=== PATIENT | male | born 1945 | race Caucasian/White ===

== ENCOUNTER 2022-04-01 07:08 | Observation (INO) ==
[2022-04-01] MEDS ORDERED: IOPAMIDOL 100 ML BOTTLE IV ONE (07:09)
[2022-04-01] MEDS ORDERED: 0.9 % SODIUM CHLORIDE 1,000 ML IV ONE (07:20)
--- NOTE | 2022-04-01 07:24 | Emergency Department Note ---
Neuro HPI General Chief Complaint: Stroke Symptoms Stated Complaint: weakness Time Seen by Provider: 04/01/22 07:15 Source: patient Mode of arrival: ambulatory Limitations: no limitations History of Present Illness HPI Narrative: Narrative: Patient presents to the ED with complaints of dizziness and vision changes x10 minutes prior to arrival. Patient everything was okay this morning but after he got the shower he felt really dizzy and he started seeing double. He also reports that he is feeling generalized weakness in his extremities. He reports some shortness of breath just not feeling well. He denies fever, chills, nausea, vomiting, Tj pain, diarrhea, dysuria, hematuria, urinary frequency, melena, medic easier, hematemesis, cardiac chest pain, hemoptysis, heart palpitation, cough, sputum production, wheezes, headache, head trauma. His states that it seems like his speech is slurred or off compared to his baseline. Denies any facial droopiness. Patient states that he has been able to walk but he feels weak. Patient denies any other alleviating or aggravating factors. He does take Coumadin for aortic valve replacement. Patient does have a history of vascular disease and recently had a carotid endarterectomy about a month ago in [place]. On Anticoagulants: Yes Related Data Home Medications Medication Instructions Recorded Confirmed Adult Low Dose Aspirin 81 mg PO DAILY 12/05/20 02/07/22 Madeline 180 mg PO DAILY 12/05/20 02/07/22 carvedilol 25 mg tablet 12.5 mg PO BID 12/05/20 02/07/22 losartan 100 mg tablet 50 mg PO BID 12/05/20 02/07/22 oxaprozin 600 mg tablet 600 mg PO BID 12/05/20 02/07/22 rosuvastatin 10 mg tablet 10 mg PO HS 12/05/20 02/07/22 zolpidem 10 mg tablet 5 mg PO DAILY 12/05/20 02/07/22 omeprazole 20 mg capsule,delayed 20 mg PO QDAY 12/26/20 02/07/22 release warfarin 3 mg tablet 3 mg PO DAILY 12/26/20 02/07/22 hydrochlorothiazide 12.5 mg tablet 25 mg PO DAILY 12/15/21 02/07/22 cholecalciferol (vitamin D3) 125 125 mcg PO QDAY 12/27/21 02/07/22 mcg (5,000 unit) capsule prasugrel 5 mg tablet 5 mg PO QDAY 02/07/22 02/07/22 morphine 30 mg tablet,extended 30 mg PO QAM 04/01/22 04/01/22 release Allergies Allergy/AdvReac Type Severity Reaction Status Date / Time Penicillins Allergy Severe Anaphylaxis Verified 02/07/22 10:11 Review of Systems ROS ROS Narrative: Narrative: All systems ED: reviewed and negative except as stated. PFSH Narrative Patient History Narrative: Narrative: Medical/Surgical/Family History All Active Problems (Updated 04/01/22 @ 08:39 by Usman Villa DO) BP (high blood pressure) (Acute) TIA (transient ischemic attack) (Acute) Cough in adult patient (Acute) Syncope (Acute) Accidental bee sting (Acute) Pruritus (Acute) Social History Smoking Status: Former smoker and Never smoker Exam Narrative Narrative: Narrative: General Limitations: no limitations General appearance: Present alert Head Head: Present atraumatic and normocephalic Eye Eye: Present PERRL and EOMI ENT ENT: Present normal oropharynx and mucous membranes moist Neck Neck: Present normal inspection and full ROM; Absent meningismus Chest Chest: Present normal inspection; Absent tenderness Respiratory Respiratory: Present normal lung sounds bilaterally; Absent respiratory distress Cardiovascular Cardiovascular: Present regular rate and normal rhythm Adbominal Abdominal: Present soft and normal bowel sounds; Absent tenderness Extremities Extremities: Present normal inspection, full ROM and normal capillary refill Back Back: Absent CVA tenderness (R), CVA tenderness (L) or L-S tenderness Neurological Neurological: Present oriented X3, normal gait and other (nih=0) Expanded Neurological CRANIAL NERVES: EOM function (II, III, IV, ): Normal, facial sensation (V): Normal, facial palsy (VII): Normal, gag reflex (IX): Normal, spinal accessory function (XI): Normal and tongue deviation (XII): Normal CEREBELLAR FUNCTION: normal gait Motor strength - LUE: 5/5 Motor strength - RUE: 5/5 Motor strength - LLE: 5/5 Motor strength - RLE: 5/5 Coma Scale Eye Opening: Spontaneous Coma Scale Motor Response: Obeys Commands Coma Scale Verbal Response: Oriented Coma Scale Total: 15 Psychiatric Psychiatric: Present normal affect and normal mood Skin Skin: Present warm (WNL) and intact Course Course Course Narrative: Patient was evaluated for dizziness and vision changes. There was concern for stroke. EKG was obtained unremarkable. CT of the head without contrast obtained with image reviewed myself with no acute findings. CTA of the head and neck was obtained with no significant changes from prior. Case was discussed with telemetry neurologist who recommends against thrombolytics at this time. Recommendations are for patient to be admitted to the hospitalist service to receive a full stroke work-up to include echocardiogram and MRI of the brain with possible initiation of aspirin and Plavix. Should be noted that patient is already on a daily baby aspirin. Case was discussed with hospitalist who has agreed to admit the patient. Plan of care was discussed with patient expressed verbal understanding and agreement. Consultations Consultation #1: Case discussed with telemetry neurologist Dr. Barba, who will evaluate the patient. Time: 07:30 Consultation #2: Case was rediscussed with telemetry neurologist, Dr. Barba, who recommends that patient be admitted to the hospitalist service for stroke work-up to include echocardiogram, MRI and possible initiation of aspirin and Plavix. At this time she recommends against thrombolytics as patient is NIH score is 0 on her scale. Time: 08:10 Consultation #3: Discussed with the hospitalist, Dr. Lynch, who has agreed to admit the patient for stroke work-up Time: 10:29 Vital Signs Vital signs: Vital Signs Temperature 97.1 F 04/01/22 07:10 Pulse Rate 66 04/01/22 07:10 Respiratory Rate 19 04/01/22 07:10 Blood Pressure 152/65 04/01/22 07:10 Oxygen Delivery Method 04/01/22 07:10 Temperature 97.1 F 04/01/22 07:10 Pulse Rate 62 04/01/22 09:31 Respiratory Rate 12 04/01/22 09:42 Blood Pressure 152/50 04/01/22 09:42 Pulse Oximetry (%) 100 04/01/22 09:31 Oxygen Delivery Method 04/01/22 07:10 MDM MDM Narrative Medical decision making narrative: Narrative: Differential Diagnosis Differential Diagnosis: Stroke, dehydration, bacterial infection, viral illness Medical Records Medical records reviewed: Yes I reviewed the patient's medical records. Lab Data Lab results reviewed: Yes I reviewed the patient's lab results. Result diagrams: 04/01/22 07:58 Labs: Lab Results 04/01/22 04/01/2204/01/22 Range/Units 07:39 07:58 07:58 WBC 3.9 L (4.5-11.0) K/mcL RBC 4.13 L (4.63-6.08) M/mcL Hgb 11.7 L (13.7-17.5) g/dL Hct 35.6 L (40.1-51.0) % POC Hct 33.0 L (41-55) MCV 86.2 (80.0-100.0) fL MCH 28.3 (26.0-34.0) pg MCHC 32.9 (31.0-36.0) g/dL RDW 15.2 H (11.5-14.5) % Plt Count 149 (140-440) K/mcL MPV 9.4 (8.8-12.5) fL Immature Gran % (Auto) 1.0 H (0.0-0.5) % Neut % (Auto) 70.4 (38.0-78.0) % Lymph % (Auto) 12.5 L (15.5-49.0) % [place] % (Auto) 9.4 (1.0-12.0) % Eos % (Auto) 5.4 (0.0-7.0) % Baso % (Auto) 1.3 (0.0-2.0) % Lymph # (Auto) 0.49 L (1.50-4.80) K/mcL [place] # (Auto) 0.37 (0.10-0.90) K/mcL Eos # (Auto) 0.21 (0.00-0.70) K/mcL Baso # (Auto) 0.05 (0.00-0.30) K/mcL Immature Gran # 0.04 (0.00-0.05) K/mcl Absolute Neutrophils 2.76 (1.80-8.00) K/mcL POC PT (11.9-14.5) POC INR (0.8-1.2) POC Sodium 138 (133-145) POC Potassium 3.6 (3.3-5.1) POC Chloride 105 (96-108) POC Total CO2 24.0 (22-30) POC BUN 28 H (6-20) POC Creatinine 1.5 H (0.6-1.2) POC Glucose 115 H (70-105) POC WB Ioniz Calcium 1.22 (1.16-1.32) Total Bilirubin 0.3 (0.1-1.0) mg/dL Direct Bilirubin < 0.2 (0-0.3) mg/dL AST 18 (<40) U/L ALT 17 (<40) U/L Alkaline Phosphatase 43 (39-117) U/L NT-Pro-B Natriuret Pep 646.7 H (<450.0) pg/mL Total Protein 5.6 L (5.9-8.4) gm/dL Albumin 3.4 (3.2-5.2) gm/dL Globulin 2.2 (2.2-3.7) gm/dL 04/01/22 Range/Units 08:02 WBC (4.5-11.0) K/mcL RBC (4.63-6.08) M/mcL Hgb (13.7-17.5) g/dL Hct (40.1-51.0) % POC Hct (41-55) MCV (80.0-100.0) fL MCH (26.0-34.0) pg MCHC (31.0-36.0) g/dL RDW (11.5-14.5) % Plt Count (140-440) K/mcL MPV (8.8-12.5) fL Immature Gran % (Auto) (0.0-0.5) % Neut % (Auto) (38.0-78.0) % Lymph % (Auto) (15.5-49.0) % [place] % (Auto) (1.0-12.0) % Eos % (Auto) (0.0-7.0) % Baso % (Auto) (0.0-2.0) % Lymph # (Auto) (1.50-4.80) K/mcL [place] # (Auto) (0.10-0.90) K/mcL Eos # (Auto) (0.00-0.70) K/mcL Baso # (Auto) (0.00-0.30) K/mcL Immature Gran # (0.00-0.05) K/mcl Absolute Neutrophils (1.80-8.00) K/mcL POC PT 26.4 H (11.9-14.5) POC INR 2.3 H (0.8-1.2) POC Sodium (133-145) POC Potassium (3.3-5.1) POC Chloride (96-108) POC Total CO2 (22-30) POC BUN (6-20) POC Creatinine (0.6-1.2) POC Glucose (70-105) POC WB Ioniz Calcium (1.16-1.32) Total Bilirubin (0.1-1.0) mg/dL Direct Bilirubin (0-0.3) mg/dL AST (<40) U/L ALT (<40) U/L Alkaline Phosphatase (39-117) U/L NT-Pro-B Natriuret Pep (<450.0) pg/mL Total Protein (5.9-8.4) gm/dL Albumin (3.2-5.2) gm/dL Globulin (2.2-3.7) gm/dL ED POC Tests ED POC Tests: JUANCARLOS - Influenza A Negative JUANCARLOS - Influenza B Negative JUANCARLOS - SARS Antigen Negative Radiology Data Radiology results reviewed: Yes I reviewed the patient's radiology results. Radiology results narrative: CT of the head obtained with image reviewed myself, agree with radiologist to rotation CTA of the head and neck obtained with image reviewed myself, I agree with radiologist interpretation EKG Data EKG #1: EKG attestation: Yes I reviewed and interpreted this EKG. 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 only: No Clinical Impression: TIA (transient ischemic attack) Patient Disposition: Xfer As Outpt/Obs ([facility]) Condition: Fair Follow up with: Lorrie Thorne [Primary Care Provider] - Prescriptions: No Action cholecalciferol (vitamin D3) 125 mcg (5,000 unit) capsule 125 mcg PO QDAY Adult Low Dose Aspirin 81 mg tablet 81 mg PO DAILY Madeline 180 mg tablet 180 mg PO DAILY carvedilol 25 mg tablet 12.5 mg PO BID oxaprozin 600 mg tablet 600 mg PO BID zolpidem 10 mg tablet 5 mg PO DAILY losartan 100 mg tablet 50 mg PO BID rosuvastatin 10 mg tablet 10 mg PO HS warfarin 3 mg tablet 3 mg PO DAILY omeprazole 20 mg Capsule,Delayed Release(Dr/Ec) 20 mg PO QDAY hydrochlorothiazide 12.5 mg tablet 25 mg PO DAILY prasugrel 5 mg Tablet 5 mg PO QDAY morphine 30 mg Tablet Extended Release 30 mg PO QAM
--- NOTE | 2022-04-01 07:51 | Cat Scan Report ---
History: New stroke symptoms with weakness. 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 Sagittal and coronal reformats were created. The radiation exposure was limited using dose reduction technology. FINDINGS: There is moderate atrophy in the frontal lobes with milder atrophy throughout the remainder the brain. There is no evidence of an infarct. No hemorrhage or mass effect are present. There are subtle areas of decreased attenuation in the white matter in the frontal and parietal lobes consistent with microvascular ischemia. The ventricles are normal in size. No abnormal extra-axial fluid collection is present. There are dense calcifications in the left vertebral artery, cavernous portions of both internal carotids and the inferior aspect of the basilar artery. Comparison with the prior CT angiogram done on 02/07/22 shows no significant change. IMPRESSION: Age-related degenerative changes and no acute abnormality Dr. Villa was called with the report Interpreted and Authenticated by: Derek Burns 04/01/22
[2022-04-01 08:00] LABS: POC Calcium, Ionized 1.22 (1.16-1.32); POC Creatinine 1.5 (0.6-1.2); POC Potassium 3.6 (3.3-5.1)
[2022-04-01 08:07] LABS: POC INR 2.3 (0.8-1.2); POC Pro Time 26.4 (11.9-14.5)
--- NOTE | 2022-04-01 08:28 | Cat Scan Report ---
History: New stroke symptoms with chronic occlusion of the right internal carotid, prior left carotid endarterectomy TECHNIQUE: Following injection of intravenous nonionic contrast, arterial phase images were acquired from the ascending aorta to the top of the head. Sagittal and coronal reformats of the head and neck were created along with MIPS images and curved linear reformats. The radiation exposure was limited using dose reduction technology. FINDINGS: NECK: Severe atherosclerotic disease is present in the aorta and its origin of great vessels arising from the aorta. Large amount of dense plaque is present at the origin of the brachiocephalic artery. This is causing a 75-80% stenosis. There also plaques in both subclavian arteries which do not appear to be hemodynamically significant. Plaques are present at the origins of both vertebral arteries causing less than 50% stenosis. Is also plaque in the proximal left common carotid which is not causing hemodynamically significant stenosis. Large amount densely calcified plaque is present in the right carotid bifurcation. There is chronic complete occlusion of the right internal carotid from the level of the carotid bifurcation to the anterior clinoid at the skull base. The right external carotid is patent. There is a contour deformity in the proximal left internal carotid due to the recent endarterectomy. This is causing less than 50% stenosis. Left external carotid is normal. Incidentally noted is severe degenerative disc disease and arthritis at multiple levels in the neck. This is a chronic stable finding. Brain: The right intracranial internal carotid artery is completely occluded. There is a large amount calcified plaque in the cavernous portion of the left internal carotid creating greater than 70% stenoses. There is normal filling of the anterior and middle cerebral arteries. There is a normal anterior and right posterior communicating artery. Left posterior communicating artery is hypoplastic. A large amount of densely calcified plaque is present in the left vertebral artery at the foramen magnum. This is increased greater than 70% stenosis. Left vertebral is dominant. The intracranial portion of the right vertebral artery is normal without evidence of stenosis. Small eccentric plaque is present in the proximal basilar artery creating approximately 40% stenosis. The basilar artery is otherwise normal. There is normal filling of the posterior inferior, anterior, inferior superior cerebellar and posterior cerebral arteries. No thrombosis is developed in the intracranial vessels. The atherosclerosis and stenotic lesions have remained stable since a prior CT done on 02/07/22. There is no evidence of hemorrhage. No aneurysm or vasculitis are present. IMPRESSION: Chronic stable complete occlusion of the right internal carotid with collateral blood flow to the right side of the brain via the anterior communicating and right posterior communicating arteries. 75-80% stenosis at the origin of the right brachiocephalic artery due to plaque Greater than 70% stenosis in the left vertebral artery at the foramen magnum Greater than 70% stenosis of the cavernous portion of the left internal carotid Dr. Villa was called with the report Interpreted and Authenticated by: Derek Burns 04/01/22
[2022-04-01 09:08] LABS: Basophils # (Auto) 0.05 K/mcL (0.00-0.30); Basophils % (Auto) 1.3 % (0.0-2.0); Eosinophils # (Auto) 0.21 K/mcL (0.00-0.70); Eosinophils % (Auto) 5.4 % (0.0-7.0); Hematocrit 35.6 % (40.1-51.0); Hemoglobin 11.7 g/dL (13.7-17.5); Lymphocytes # (Auto) 0.49 K/mcL (1.50-4.80); Lymphocytes % (Auto) 12.5 % (15.5-49.0); Mean Cell Volume 86.2 fL (80.0-100.0); Mean Corpuscular HGB Conc 32.9 g/dL (31.0-36.0); Mean Platelet Volume 9.4 fL (8.8-12.5); Monocytes # (Auto) 0.37 K/mcL (0.10-0.90); Monocytes % (Auto) 9.4 % (1.0-12.0); Neutrophils % (Auto) 70.4 % (38.0-78.0); Platelet Count 149 K/mcL (140-440); RBC 4.13 M/mcL (4.63-6.08); Red Cell Distribution Width 15.2 % (11.5-14.5); WBC 3.9 K/mcL (4.5-11.0)
[2022-04-01 09:33] LABS: proBNP 646.7 pg/mL (<450.0)
[2022-04-01 09:34] LABS: ALT/SGPT 17 U/L (<40); AST/SGOT 18 U/L (<40); Albumin 3.4 gm/dL (3.2-5.2); Alkaline Phosphatase 43 U/L (39-117); Bilirubin,Direct < 0.2 mg/dL (0-0.3); Bilirubin,Total 0.3 mg/dL (0.1-1.0); Globulin 2.2 gm/dL (2.2-3.7)
--- NOTE | 2022-04-01 11:11 | Internal Med History&Physical ---
HPI History of Present Illness Patient information: Note initiated : 04/01/22 at 11:05 am Service Date, if different from initiated Date: [] Patient: Sidney Elizabeth 76 y/o M admitted on for weakness. Chief Complaint: [] History of present illness: Mr. Elizabeth is a 76-year-old male with multiple medical comorbidities including hypertension, hyperlipidemia, chronic neck pain on long-term opioid therapy, coronary artery disease status post CABG and multiple coronary stents, aortic valve replacement with mechanical valve, peripheral arterial disease including chronically occluded right internal carotid artery and left internal carotid artery stenosis status post carotid endarterectomy about 4 weeks prior to admission, GERD who developed vertigo and aphasia about 7:00 AM on 04/01/2022 which lasted for approximately 1 hour. Patient was brought to the emergency department and a stroke work-up initiated. Noncontrast CT head did not show any acute changes, the CTA head and neck showed a 75 to 80% stenosis at the origin of the right brachiocephalic artery due to plaque, a greater than 70% stenosis in the left vertebral artery at the mancini magnum, greater than 70% stenosis of the cavernous portion of the left internal carotid artery.there was a chronically occluded right internal carotid artery with collateral blood flow to the right side of the brain via the anterior communicating and right posterior communicating arteries. The patient did have a left carotid endarterectomy about 4 weeks prior to admission. Other work-up included a CBC which showed a mild anemia with a hemoglobin 11.7, normal platelet count, INR which was 2.3, complete metabolic panel which was significant for a creatinine of 1.5. EKG showed that the patient was in normal sinus rhythm, there was a prolonged [place] interval and a left bundle branch block. Stroke neurology was consulted by the ED provider, the recommendation was to admit the patient for a stroke work-up to include an MRI brain, echocardiogram and blood work. If a stroke is noted on the MRI brain then the patient would be a candidate for Plavix for 21 days in addition to the patient's current aspirin and Coumadin. When the patient was seen in the emergency department, his symptoms had totally resolved, review of systems was otherwise negative for any recent changes. The patient said that he has not tolerated Plavix in the past, instead was treated with prasugrel following his carotid endarterectomy however is no longer taking that antiplatelet. Review of systems Constitutional: no fever, fatigue, or weight loss Eyes: no vision changes or pain Cardiovascular: no chest pain, no palpitations Respiratory: no cough or dyspnea Gastrointestinal: Positive for episodic epigastric discomfort, denies melanotic or bloody stools Genitourinary: no dysuria or difficulty voiding Musculoskeletal: Positive for chronic neck pain Integumentary: no skin lesion or wound Neurological: Resolved vertigo and confusion, no focal weakness or numbness Psychiatric: no anxiety or depression Physical exam Head: Atraumatic, normal inspection. Eyes: normal appearance, no scleral icterus. Neck: full ROM Respiratory: no respiratory distress. Cardiovascular: Sternotomy i scar present, normal rate and rhythm, mechanical S2. GI/Abdominal: soft, nontender, no guarding. Extremities: full range of motion, nontender. Neurological: CN II-XII intact, intact motor, intact sensation. Psychiatric: normal mood. Skin: warm, chronic discoloration secondary to small vessel hemorrhages in bilateral upper extremities secondary to Coumadin therapy PFSH PFSH All Active Problems (Updated 04/01/22 @ 08:39 by Usman Villa DO) BP (high blood pressure) (Acute) TIA (transient ischemic attack) (Acute) Cough in adult patient (Acute) Syncope (Acute) Accidental bee sting (Acute) Pruritus (Acute) Social History smoking status: Former smoker and Never smoker MEDS/ALLERGIES Home Medications and Allergies Home Medications Medication Instructions Recorded Confirmed Type Adult Low Dose Aspirin 81 mg PO DAILY 12/05/20 04/01/22 History Madeline 180 mg PO DAILY 12/05/20 04/01/22 History carvedilol 25 mg tablet 12.5 mg PO BID 12/05/20 04/01/22 History losartan 100 mg tablet 50 mg PO BID 12/05/20 04/01/22 History oxaprozin 600 mg tablet 600 mg PO BID 12/05/20 04/01/22 History rosuvastatin 10 mg tablet 10 mg PO HS 12/05/20 04/01/22 History zolpidem 10 mg tablet 5 mg PO DAILY 12/05/20 04/01/22 History omeprazole 20 mg capsule,delayed 20 mg PO QDAY 12/26/20 04/01/22 History release warfarin 3 mg tablet 3 mg PO DAILY 12/26/20 04/01/22 History hydrochlorothiazide 12.5 mg tablet 25 mg PO DAILY 12/15/21 04/01/22 History cholecalciferol (vitamin D3) 125 125 mcg PO QDAY 12/27/21 04/01/22 History mcg (5,000 unit) capsule prasugrel 5 mg tablet 5 mg PO QDAY 02/07/22 02/07/22 History morphine 30 mg tablet,extended 30 mg PO QAM 04/01/22 04/01/22 History release Allergies Allergy/AdvReac Type Severity Reaction Status Date / Time Penicillins Allergy Severe Anaphylaxis Verified 02/07/22 10:11 EXAM Constitutional Vitals: Temp Pulse Resp BP Pulse Ox O2 Del Method 97.1 F 63 14 172/70 100 04/01/22 07:10 04/01/22 10:31 04/01/22 10:49 04/01/22 10:49 04/01/22 10:31 04/01/22 07:10 DATA Data Completed and Pending Labs: Labs from last 24 hours 04/01/22 04/01/22 04/01/22 08:02 07:58 07:58 WBC 3.9 L RBC 4.13 L Hgb 11.7 L Hct 35.6 L POC Hct MCV 86.2 MCH 28.3 MCHC 32.9 RDW 15.2 H Plt Count 149 MPV 9.4 Immature Gran % (Auto) 1.0 H Neut % (Auto) 70.4 Lymph % (Auto) 12.5 L [place] % (Auto) 9.4 Eos % (Auto) 5.4 Baso % (Auto) 1.3 Lymph # (Auto) 0.49 L [place] # (Auto) 0.37 Eos # (Auto) 0.21 Baso # (Auto) 0.05 Immature Gran # 0.04 Absolute Neutrophils 2.76 POC PT 26.4 H POC INR 2.3 H POC Sodium POC Potassium POC Chloride POC Total CO2 POC BUN POC Creatinine POC Glucose POC WB Ioniz Calcium Total Bilirubin 0.3 Direct Bilirubin < 0.2 AST 18 ALT 17 Alkaline Phosphatase 43 NT-Pro-B Natriuret Pep 646.7 H Total Protein 5.6 L Albumin 3.4 Globulin 2.2 04/01/22 07:39 WBC RBC Hgb Hct POC Hct 33.0 L MCV MCH MCHC RDW Plt Count MPV Immature Gran % (Auto) Neut % (Auto) Lymph % (Auto) [place] % (Auto) Eos % (Auto) Baso % (Auto) Lymph # (Auto) [place] # (Auto) Eos # (Auto) Baso # (Auto) Immature Gran # Absolute Neutrophils POC PT POC INR POC Sodium 138 POC Potassium 3.6 POC Chloride 105 POC Total CO2 24.0 POC BUN 28 H POC Creatinine 1.5 H POC Glucose 115 H POC WB Ioniz Calcium 1.22 Total Bilirubin Direct Bilirubin AST ALT Alkaline Phosphatase NT-Pro-B Natriuret Pep Total Protein Albumin Globulin A/P Narrative A/P Narrative: Assessment: 76-year-old male with a history of hypertension, hyperlipidemia, chronic neck pain on long-term opioid therapy, coronary artery disease status post CABG and multiple coronary stents, aortic valve replacement with mechanical valve, peripheral arterial disease including chronically occluded right internal carotid artery and left internal carotid artery stenosis status post carotid endarterectomy about 4 weeks prior to admission, GERD admitted for TIA and stroke work-up following about 1 hour of vertigo and aphasia which have completely resolved. Plan -Admit to observation for expedited MRI and stroke/TIA work-up. -Continue aspirin 81 mg daily. -Continue rosuvastatin 10 mg daily. -Coumadin per pharmacy. -MRI brain. -Transthoracic echocardiogram. -Neurochecks every 4 hours, NIHSS every shift and as needed. -Permissive blood pressure pending MRI results, if negative will resume home antihypertensives. -Labetalol IV labetalol and hydralazine IV as needed for extremely elevated blood pressure -campus monitor. -Check lipid panel and hemoglobin A1c. -Follow CBC and IPP. -Home medication reconciliation, continue important meds. -Cardiac diet. -PT consult. -DVT prophylaxis: Coumadin Time Spent With Patient Time: Total time spent is greater than 50% in coordination of care (as documented) at patient's floor/unit and/or counseling patient:
[2022-04-01] MEDS ORDERED: SENNOSIDES 1 TABLET PO PRN (12:04)
[2022-04-01] MEDS ORDERED: ONDANSETRON 4 MG/2 ML VIAL IV PRN (12:04)
[2022-04-01] MEDS ORDERED: LACTULOSE 20 GM/30 ML ORAL.SOL PO PRN (12:04)
[2022-04-01] MEDS ORDERED: LABETALOL 5 MG/ML ML IV PRN (12:04)
[2022-04-01] MEDS ORDERED: hydrALAZINE 20 MG/ML VIAL IV PRN (12:04)
[2022-04-01] MEDS ORDERED: ZOLPIDEM 5 MG TABLET PO PRN (14:00)
[2022-04-01] MEDS ORDERED: WARFARIN 2 MG TABLET PO SCH (14:00)
[2022-04-01] MEDS ORDERED: FEXOFENADINE 180 MG TABLET PO SCH (14:15)
--- NOTE | 2022-04-01 15:43 | Magnetic Resonance Report ---
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 There is a patchy distribution of small high signal lesions scattered throughout the centrum semiovale in the frontal and parietal lobes bilaterally. No cortical lesion is present. The brainstem, cerebellum and basal ganglia are normal. Ventricles are normal in size. There is mild generalized atrophy. Allowing for differences in technology there has been no change from the head CT done earlier today. IMPRESSION: No infarct or acute abnormality Age-related ischemic or degenerative changes in the white matter above the tentorium Dr. Elizabeth was called with the report Interpreted and Authenticated by: Derek Burns 04/01/22
[2022-04-01] MEDS: 0.9 % SODIUM CHLORIDE 10 ML SYRINGE IV SCH ×2 (15:47→20:35)
[2022-04-01] MEDS: ACETAMINOPHEN 325 MG TABLET PO PRN (19:35)
[2022-04-01] MEDS: DOCUSATE SODIUM 100 MG CAPSULE PO SCH (20:35)
[2022-04-01] MEDS ORDERED: ATORVASTATIN 20 MG TABLET PO SCH ×2 (21:00)
[2022-04-01] MEDS ORDERED: oxyCODONE HCL 5 MG TABLET PO PRN (22:13)
[2022-04-01] MEDS ORDERED: oxyCODONE HCL 5 MG TABLET PO ONE (22:30)
[2022-04-01] MEDS: HYDROmorphone 0.5 MG/0.5 ML SYRINGE IV PRN (23:34)
[2022-04-01] MEDS ORDERED: HYDROmorphone 0.5 MG/0.5 ML SYRINGE ONE (23:46)
[2022-04-02] MEDS: 0.9 % SODIUM CHLORIDE 10 ML SYRINGE IV SCH (05:21)
[2022-04-02] MEDS: OXAPROZIN 600 MG TABLET PO SCH ×2 (06:01→07:42)
[2022-04-02] MEDS: ACETAMINOPHEN 325 MG TABLET PO PRN (06:47)
[2022-04-02] MEDS: HYDROmorphone 0.5 MG/0.5 ML SYRINGE IV PRN (06:47)
[2022-04-02 07:02] LABS: Basophils # (Auto) 0.05 K/mcL (0.00-0.30); Basophils % (Auto) 0.9 % (0.0-2.0); Eosinophils # (Auto) 0.28 K/mcL (0.00-0.70); Eosinophils % (Auto) 5.2 % (0.0-7.0); Hematocrit 37.9 % (40.1-51.0); Hemoglobin 12.5 g/dL (13.7-17.5); Lymphocytes # (Auto) 0.76 K/mcL (1.50-4.80); Lymphocytes % (Auto) 14.2 % (15.5-49.0); Mean Platelet Volume 9.5 fL (8.8-12.5); Monocytes # (Auto) 0.56 K/mcL (0.10-0.90); Monocytes % (Auto) 10.4 % (1.0-12.0); Neutrophils % (Auto) 68.4 % (38.0-78.0); Platelet Count 157 K/mcL (140-440); RBC 4.46 M/mcL (4.63-6.08); WBC 5.4 K/mcL (4.5-11.0)
[2022-04-02 07:09] LABS: Prothrombin Time 23.5 sec (11.9-14.5)
[2022-04-02 07:34] LABS: ALT/SGPT 19 U/L (<40); AST/SGOT 20 U/L (<40); Albumin 3.8 gm/dL (3.2-5.2); Albumin/Globulin Ratio 1.7 (1.0-2.3); Alkaline Phosphatase 45 U/L (39-117); Bilirubin,Direct < 0.2 mg/dL (0-0.3); Bilirubin,Total 0.3 mg/dL (0.1-1.0); Blood Urea Nitrogen 25 mg/dL (8-23); Calcium 9.4 mg/dL (8.6-10.4); Carbon Dioxide 22 mmol/L (22-30); Chloride 103 mmol/L (96-108); Globulin 2.2 gm/dL (2.2-3.7); Glomerular Filtration Rate 44; Glucose 83 mg/dL (70-105); HDL Cholesterol 55 mg/dL (>40); LDL Cholesterol,Calculated 108 mg/dL (<100); Lactate Dehydrogenase 306 U/L (135-225); Non-HDL Cholesterol 129 mg/dL (<130); Phosphorous 3.6 mg/dL (2.5-4.5); Triglycerides 106 mg/dL (<150); Uric Acid 5.3 mg/dL (2.5-8.0)
[2022-04-02 07:40] LABS: Estimated Average Glucose(eAG) 97 mg/dL
[2022-04-02] MEDS ORDERED: CARVEDILOL 12.5 MG TABLET PO SCH (08:00)
[2022-04-02] MEDS ORDERED: FEXOFENADINE 180 MG TABLET PO SCH (09:00)
[2022-04-02] MEDS ORDERED: LOSARTAN 50 MG TABLET PO SCH (09:00)
[2022-04-02] MEDS ORDERED: OMEPRAZOLE 20 MG CAPSULE PO SCH (09:00)
[2022-04-02] MEDS ORDERED: ASPIRIN 81 MG TAB.CHEW CHEWED SCH (09:00)
[2022-04-02] MEDS ORDERED: HYDROCHLOROTHIAZIDE 25 MG TABLET PO SCH (09:00)
[2022-04-02] MEDS ORDERED: morphine 30 MG TAB.SR.12H PO SCH (09:00)
--- NOTE | 2022-04-02 09:22 | EKG ---
[facility] Test Date: 2022-04-01 Pat Name: Sidney Elizabeth Department: ED Room: Gender: Male [employer] Operator: : [id number] Requested By: Usman Villa Order Number: [id number] Reading MD: Cheng Burns M.D. Measurements Intervals Baird Rate: 66 P: 57 MO: 267 QRS: -14 QRSD: 143 T: 126 QT: 458 QTc: 480 Interpretive Statements Sinus rhythm Prolonged MO interval Left bundle branch block Electronically Signed On 04-02-2022 9:21:46 PST by Cheng Burns M.D. /[id number]
[2022-04-02] MEDS: DOCUSATE SODIUM 100 MG CAPSULE PO SCH (09:24)
--- NOTE | 2022-04-02 11:32 | Discharge Summary ---
Discharge Provider Provider IMPORTANT FOLLOW-UP INFORMATION FOR PCP: Patient information: Note initiated : 04/02/22 at 11:30 am Service Date, if different from initiated Date: [] Patient: Sidney Elizabeth 76 y/o M admitted on 04/01/22 for weakness. Chief Complaint: [] Date of admission: 04/01/22 11:46 Discharge date: 04/02/22 Primary care physician: Lorrie Thorne Consults: 04/01/22 Consult to Physician [CONS] Stat Comment: Consulting Provider: Je Lynch Reason For Exam: Physician to Consult COURSE Hospital Course Hospital course: Mr. Elizabeth is a 76-year-old male with multiple medical comorbidities including hypertension, hyperlipidemia, chronic neck pain on long-term opioid therapy, coronary artery disease status post CABG and multiple coronary stents, aortic valve replacement with mechanical valve, peripheral arterial disease including chronically occluded right internal carotid artery and left internal carotid artery stenosis status post carotid endarterectomy about 4 weeks prior to admission, GERD who developed vertigo and aphasia about 7:00 AM on 04/01/2022 which lasted for approximately 1 hour. Patient was brought to the emergency department and a stroke work-up initiated. Noncontrast CT head did not show any acute changes, the CTA head and neck showed a 75 to 80% stenosis at the origin of the right brachiocephalic artery due to plaque, a greater than 70% stenosis in the left vertebral artery at the mancini magnum, greater than 70% stenosis of the cavernous portion of the left internal carotid artery.there was a chronically occluded right internal carotid artery with collateral blood flow to the right side of the brain via the anterior communicating and right posterior communicating arteries. The patient did have a left carotid endarterectomy about 4 weeks prior to admission. Other work-up included a CBC which showed a mild anemia with a hemoglobin 11.7, normal platelet count, INR which was 2.3, complete metabolic panel which was significant for a creatinine of 1.5. EKG showed that the patient was in normal sinus rhythm, there was a prolonged WI interval and a left bundle branch block. Stroke neurology was consulted by the ED provider, the recommendation was to admit the patient for a stroke work-up to include an MRI brain, echocardiogram and blood work. If a stroke is noted on the MRI brain then the patient would be a candidate for Plavix for 21 days in addition to the patient's current aspirin and Coumadin. When the patient was seen in the emergency department, his symptoms had totally resolved, review of systems was otherwise negative for any recent changes. The patient said that he has not tolerated Plavix in the past, instead was treated with prasugrel following his carotid endarterectomy however is no longer taking that antiplatelet. 04/02 No significant events overnight, no recurrent episodes of aphasia and disorientation. MRI brain did not show any evidence of acute stroke. Transthoracic echocardiogram did not show any source of potential emboli. Resume the patient's home antihypertensives. Hemoglobin A1c 5, LDL 108. Discharged to home with prior medications unchanged, follow-up with PCP and vascular medicine. If the patient's symptoms recur and fit a strokelike syndrome would consider discussing with stroke neurology regarding potentially changing the patient's antiplatelet to a P2 Y 12 inhibitor. The patient says that he is a Plavix nonresponder therefore Plavix would not be appropriate in his case. Physical exam Head: Atraumatic, normal inspection. Eyes: normal appearance, no scleral icterus. Neck: full ROM Respiratory: no respiratory distress. Cardiovascular: Sternotomy i scar present, normal rate and rhythm, mechanical S2. GI/Abdominal: soft, nontender, no guarding. Extremities: full range of motion, nontender. Neurological: CN II-XII intact, intact motor, intact sensation. Psychiatric: normal mood. Skin: warm, chronic discoloration secondary to small vessel hemorrhages in bilateral upper extremities secondary to Coumadin therapy Discharge diagnosis: Transient episode of vertigo and aphasia Secondary discharge diagnosis: Mechanical aortic valve Carotid artery disease Time Spent with Patient Time attestation: Total time spent providing and/or coordinating discharge services: Time spent: Less than 30 minutes EXAM Constitutional Vitals: Temp Pulse Resp BP Pulse Ox O2 Del Method 98.6 F 61 14 148/69 100 04/02/22 08:01 04/02/22 10:01 04/02/22 10:01 04/02/22 10:01 04/02/22 10:01 04/02/22 08:01 Discharge Data Data Completed and Pending Labs on day of discharge: Labs from last 24 hours 04/02/22 04/02/22 04/02/22 05:04 05:04 05:04 WBC 5.4 RBC 4.46 L Hgb 12.5 L Hct 37.9 L MCV 85.0 MCH 28.0 MCHC 33.0 RDW 15.0 H Plt Count 157 MPV 9.5 Immature Gran % (Auto) 0.9 H Neut % (Auto) 68.4 Lymph % (Auto) 14.[address] % (Auto) 10.4 Eos % (Auto) 5.2 Baso % (Auto) 0.9 Lymph # (Auto) 0.[address] # (Auto) 0.56 Eos # (Auto) 0.28 Baso # (Auto) 0.05 Immature Gran # 0.05 Absolute Neutrophils 3.67 PT 23.5 H INR 2.0 H Sodium 137 Potassium 3.8 Chloride 103 Carbon Dioxide 22 Anion Gap 12.0 BUN 25 H Creatinine 1.5 H GFR Calculation 44 Glucose 83 Hemoglobin A1c 5.0 Estim Average Glucose 97 Uric Acid 5.3 Calcium 9.4 Phosphorus 3.6 Magnesium 2.2 Total Bilirubin 0.3 Direct Bilirubin < 0.2 GGT 11 AST 20 ALT 19 Alkaline Phosphatase 45 Lactate Dehydrogenase 306 H Total Protein 6.0 Albumin 3.8 Globulin 2.2 Albumin/Globulin Ratio 1.7 Triglycerides 106 Cholesterol 184 LDL Cholesterol, Calc 108 H Non-HDL Cholesterol 129 HDL Cholesterol 55 POC Troponin I 04/01/22 11:29 WBC RBC Hgb Hct MCV MCH MCHC RDW Plt Count MPV Immature Gran % (Auto) Neut % (Auto) Lymph % (Auto) [facility] % (Auto) Eos % (Auto) Baso % (Auto) Lymph # (Auto) [facility] # (Auto) Eos # (Auto) Baso # (Auto) Immature Gran # Absolute Neutrophils PT INR Sodium Potassium Chloride Carbon Dioxide Anion Gap BUN Creatinine GFR Calculation Glucose Hemoglobin A1c Estim Average Glucose Uric Acid Calcium Phosphorus Magnesium Total Bilirubin Direct Bilirubin GGT AST ALT Alkaline Phosphatase Lactate Dehydrogenase Total Protein Albumin Globulin Albumin/Globulin Ratio Triglycerides Cholesterol LDL Cholesterol, Calc Non-HDL Cholesterol HDL Cholesterol POC Troponin I 0.03 Discharge Plan Patient/Caregiver Discharge Instructions Activity: increase activity as tolerated Diet: Cardiac Prescriptions: Continued Adult Low Dose Aspirin 81 mg tablet 81 mg PO DAILY oxaprozin 600 mg tablet 1,200 mg PO BID zolpidem 10 mg tablet 5 mg PO QHS PRN (Reason: Insomnia) losartan 100 mg tablet 100 mg PO DAILY rosuvastatin 10 mg tablet 10 mg PO HS warfarin 3 mg tablet See Rx Instructions .ROUTE .COMPLEX Rx Instructions: Pt has home INR POC, he has instructions on how to adjust his coumadin dose. Patient took 2mg coumadin 03/31. omeprazole 20 mg Capsule,Delayed Release(Dr/Ec) 20 mg PO QDAY hydrochlorothiazide 12.5 mg tablet 25 mg PO DAILY morphine 30 mg Tablet Extended Release 30 mg PO QAM docusate sodium 100 mg Capsule 100 mg PO BID carvedilol 12.5 mg tablet 1 tab PO BID fexofenadine [Aller-Fex] 180 mg Tablet 180 mg PO QDAY Follow Up Plan Follow up with: Abel Keenan [Referring] - (Please call to schedule an appointment as soon as possible. A summary of this visit has been faxed.) Lorrie Thorne [Primary Care Provider] - 04/14/22 11:00 am Patient Disposition: Home, Self-Care Prognosis: Fair Overall status at discharge: patient is back to baseline Discharge Orders: Discharge Order (Routine); Ordered 04/02/22 Ordered By: Je Lynch
== END 2022-04-02 12:10 | disposition home or self-care (01) ==
LOC: ED 07:08 → ICU 07:08
PROVIDERS: ADMIT Internal Medicine; ATTEND Internal Medicine